=== PATIENT | female | born 1990 | race Caucasian/White ===

== ENCOUNTER 2022-02-05 19:47 | Emergency (ER) | payer SELFPAY ==
--- NOTE | 2022-02-05 19:50 | ED.BACK ---
HPI - Back Pain/Injury General Chief Complaint: Back Pain/Injury Stated Complaint: Back Pain Time Seen by Provider: 02/05/22 19:49 Source: patient Mode of arrival: ambulatory Limitations: no limitations History of Present Illness HPI Narrative: Ms. Swan is a 32-year-old female patient presenting to the clinic today with complaints of back pain. She reports she has had mid back pain x3 days. Reports that there is no injury she just woke up with this pain. Reports that the pain is so bad that is at times it makes her short of breath due to the pain. Reports the pain just at her bra line and just above the lumbar spine. Feels as though it is a deep ache pain. She denies any shortness of breath or chest pain. She denies any coughing. She denies any fever or chills. Denies any saddle anesthesia, urinary incontinence or bowel incontinence, or paresthesia Related Data Allergies Allergy/AdvReac Type Severity Reaction Status Date / Time No Known Allergies Allergy Verified 02/05/22 19:59 Review of Systems Review of Systems: Pertinent positives per HPI. Patient denies any fever, chills, rash, headache, visual changes, dizziness, cough, runny nose, sore throat, shortness of breath, chest pain, palpitations, nausea, vomiting, diarrhea, constipation, abdominal pain, or any urinary issues. PMFSH Comments At the time of my signature, I reviewed and agree with the nursing past medical, surgical, social, and family history. There is no relevant family history pertinent to the patient complaint. Exam Narrative: General: Well-developed, well nourished, in no apparent distress Head: Normocephalic, atraumatic. Cardio: Regular rate and rhythm, s1 and s2 normal, no murmur appreciated. Resp: Clear to auscultation bilaterally, no rhonchi, rales, wheezing or rubs. Musculoskeletal: No deformity, mild tenderness to palpation over the thoracic spine and paraspinous musculature, grossly normal range of motion, muscle strength strong and equal, peripheral pulse strong, no edema, no cyanosis, normal gait and station Course Course Emergency Course: Portions of this record may have been created with voice recognition software. Level of Care: Express Care Visit Vital Signs Vital signs: Vital signs reviewed MDM - Back Pain/Injury MDM Narrative Medical decision making narrative: At the time of visit patient is resting comfortably on the exam table. I suspect the patient has thoracic back pain/paraspinous muscle strain. Supportive measures were discussed with the patient she voiced understanding of discharge instructions and agrees to treatment plan. Differential Diagnosis Differential diagnosis: Likely thoracic back pain, discitis and other (muscle strain) Discharge Plan Discharge Clinical Impression: Acute midline thoracic back pain Patient Disposition: Home, Self-Care Condition: Stable Instructions: Antibiotic Form, Back Pain (ED) Additional Instructions: Take Flexeril as prescribed. Sedation precautions reviewed with the patient Take naproxen as prescribed Follow-up with your PCP in 3 to 5 days if symptoms persist or sooner if they worsen Prescriptions: New cyclobenzaprine 10 mg tablet 10 mg PO Q8H PRN (Reason: muscle spasm) 7 Days Qty: 21 0RF Follow-up/Referrals: UNKNOWN,DOCTOR [Non-Staff] - Time of Disposition: 20:13 Quality NIHSS Nursing Documentation ED NIHSS nursing documentation: reviewed/agree
[2022-02-05 19:52] VITALS: BP 113/68; PULSE 93; RESP 16; TEMP 37.2; O2SAT 97
== END 2022-02-05 19:57 | disposition home or self-care (01) ==
PROVIDERS: Emergency Provider Nurse Practitioner Family
DX: M54.6 Pain in thoracic spine (principal)
CPT/HCPCS: 99213; G0463

== ENCOUNTER 2022-04-24 09:41 | Emergency (ER) | payer SELFPAY ==
--- NOTE | 2022-04-24 10:01 | ED.URI ---
HPI - URI/Sore Throat General Chief Complaint: Upper Respiratory Infection Stated Complaint: sore throat Time Seen by Provider: 04/24/22 10:01 Source: patient and RN notes reviewed History of Present Illness HPI Narrative: patient is a 32-year-old female who presents to the Urgent Care with complaints of sore throat bilateral ear pain for 5 days. Patient has not taken anything [id number] for her symptoms. Denies any fever, nausea, vomiting. Denies any ill exposures. No other acute complaints. No acute distress noted. Patient aware of the plan of care. Some parts of this dictation were generated by voice recognition software and may contain typographical and/or grammatical inaccuracies. Related Data Home Medications Medication Instructions Recorded Confirmed levonorgestrel 20 mcg/24 hours (8 1 device intrauterine ONCE 04/24/22 04/24/22 yrs) 52 mg intrauterine device (Mirena) Allergies Allergy/AdvReac Type Severity Reaction Status Date / Time No Known Allergies Allergy Verified 04/24/22 10:13 Review of Systems Review of Systems: CONSTITUTIONAL: Denies fever, chills, or sweats. EYES: Denies visual changes, redness, or discharge. ENT: Denies rhinorrhea, congestion. reports of sore throat and bilateral ear pain CARDIOVASCULAR: Denies chest pain, palpitations, or edema. RESPIRATORY: Denies cough or dyspnea. GASTROINTESTINAL: Denies abdominal pain, nausea, vomiting, or diarrhea. GENITOURINARY: Denies dysuria or hematuria. SKIN: Denies rash or itching. MUSCULOSKELETAL: Denies back pain, joint pain, or myalgia. NEUROLOGIC: Denies headache, numbness, or weakness. All other systems reviewed are negative, except as documented in HPI. PMFSH Comments At the time of my signature, I reviewed and agree with the nursing past medical, surgical, social, and family history. There is no relevant family history pertinent to the patient complaint. Exam Narrative: GENERAL: This is a well-nourished, well-developed patient, in no apparent distress. HEAD: normocephalic, atraumatic. EYES: PERRL. Sclera clear/white. Vision is grossly intact. EARS: External ears normal, auditory canals clear and without drainage, TMs normal without perforation. Hearing grossly intact. NOSE: External nose normal with no obvious nasal discharge, nares without redness, no rhinorrhea. THROAT: Mucous membranes moist, moderate erythema of the posterior oropharynx with vesicular lesions to the posterior tongue and moderate postnasal drainage. NECK: Neck supple, non-tender mild bilateral submandibular lymphadenopathy CARDIOVASCULAR: Regular rate and rhythm without murmurs, gallops, or rubs. RESPIRATORY: Clear to auscultation. Breath sounds equal bilaterally. No wheezes, rales, or rhonchi. SKIN: warm, intact with no suspicious lesions or rash, good texture and turgor. NEURO: awake, alert, and oriented to person, place and time. There were no obvious focal neurologic abnormalities. EXTREMITIES: No clubbing, cyanosis, or edema. Course Course Level of Care: Express Care Visit Vital Signs Vital signs: Vital Signs Temperature 98.1 F 04/24/22 10:05 Pulse Rate 88 04/24/22 10:05 Respiratory Rate 20 04/24/22 10:05 Blood Pressure 96/69 L 04/24/22 10:05 Pulse Oximetry 99 04/24/22 10:05 Oxygen Delivery Room Air 04/24/22 10:05 Temperature 98.1 F 04/24/22 10:05 Pulse Rate 88 04/24/22 10:05 Respiratory Rate 20 04/24/22 10:05 Blood Pressure 96/69 L 04/24/22 10:05 Pulse Oximetry 99 04/24/22 10:05 Oxygen Delivery Room Air 04/24/22 10:05 Reviewed MDM - URI/Sore Throat MDM Narrative Medical decision making narrative: reviewed lab results with the patient. She is aware that strep swab was negative. Educated patient on culture and we will call within 72 hours if culture is positive antibiotics are necessary. Advised the patient to complete the steroid regimen as prescribed. Be sure to eat and drink with
[2022-04-24 10:05] VITALS: BP 96/69; PULSE 88; RESP 20; TEMP 36.7; O2SAT 99
== END 2022-04-24 10:35 | disposition home or self-care (01) ==
PROVIDERS: Emergency Provider Nurse Practitioner Family
DX: J02.9 Acute pharyngitis, unspecified (principal)
CPT/HCPCS: 87081; 87880; 99213; G0463

== ENCOUNTER 2023-01-09 10:14 | Emergency (ER) | payer SELFPAY ==
--- NOTE | 2023-01-09 10:18 | ED.URI ---
HPI - URI/Sore Throat General Chief Complaint: Upper Respiratory Infection Stated Complaint: Flu Symptoms Time Seen by Provider: 01/09/23 10:27 Source: patient, RN notes reviewed and old records reviewed Mode of arrival: ambulatory Limitations: no limitations History of Present Illness HPI Narrative: 32-year-old female presents to the [facility] with complaints of feeling very weak and shaky and a runny nose for 6 days. Has not taken anything for symptoms. States that she is eating and drinking without issue. Unsure if she has had a fever. Requesting a COVID test states that her taste buds are strange. Denies a sore throat but states that it she has had strep in the past without a sore throat Related Data Home Medications Medication Instructions Recorded Confirmed levonorgestrel 21 mcg/24 hours (8 1 device intrauterine ONCE 04/24/22 04/24/22 yrs) 52 mg intrauterine device (Mirena) Allergies Allergy/AdvReac Type Severity Reaction Status Date / Time No Known Allergies Allergy Verified 04/24/22 10:13 Review of Systems Review of Systems: All systems reviewed & are unremarkable except as noted in HPI and below Constitutional: Constitutional: Reports as per HPI Eyes: Eyes: Reports no additional eye complaints ENT: Reports system reviewed and no additional complaints, except as documented Cardiovascular: Cardiovascular: Reports no additional cardiovascular complaints, Denies chest pain and Denies dyspnea Respiratory: Respiratory: Reports no additional respiratory complaints, Denies chest congestion, Denies cough and Denies dyspnea Gastrointestinal: Gastrointestinal: Reports no additional gastrointestinal complaints, Denies abdominal pain, Denies nausea and Denies vomiting Musculoskeletal: Musculoskeletal: Reports no additional musculoskeletal complaints Integumentary/Breasts: Skin/Breast: Reports system reviewed and no additional complaints, except as docu Neurologic: Reports system reviewed and no additional complaints, except as documented Psychiatric: Psychiatric: Reports no additional psychiatric complaints Allergic/Immunologic: Allergic/Immunologic: Reports no additional allergic/immunologic complaints PMFSH Comments At the time of my signature, I reviewed and agree with the nursing past medical, surgical, social, and family history. There is no relevant family history pertinent to the patient complaint. Exam Const: General: cooperative, healthy appearing, comfortable, no acute distress, well developed, alert and well nourished Nutritional Appearance: well nourished Orientation/consciousness: patient oriented x3 Limitations: no limitations HENMT: Head: normal to inspection Ears: hearing grossly normal bilaterally, external ears normal, TM's normal bilaterally and EAC's normal Face/Nose/Sinus: Normal external nose present, Normal nares present, Normal nasal mucous membranes and turbinates present and normal facial exam Face and sinus: normal facial exam Mouth: Yes Normal oral and palatal mucosa present, Yes lip normal and Yes moist mucous membranes Throat: posterior oropharynx normal, uvula midline and postnasal drainage Eyes: General: appearance normal, both eyes and all related structures Alignment and Position: alignment normal Periorbital: periorbital findings normal Pupils: Equal, round and reactive pupils present EOM: EOMs intact bilaterally Neck: Neck: normal visual inspection, full ROM, no lymphadenopathy and no meningeal signs Chest: Chest palpation & inspection: normal inspection of the chest Resp: Effort & Inspection: normal respiratory effort and able to speak in complete sentences Auscultation: clear to auscultation bilaterally, no crackles, no rales, no rhonchi and no wheezes Cardio: Rate: regular rate Rhythm: regular rhythm Back/Spine/Pelvis: Cervical Spine: cervical ROM normal Thoracic/Lumbar Spine: No thoracic spinal tenderness Skin: General skin exam: normal color an
[2023-01-09 10:26] VITALS: BP 116/70; PULSE 113; RESP 16; TEMP 37.2; O2SAT 99
[2023-01-09 10:29] VITALS: BP 116/70; PULSE 113; RESP 16; TEMP 37.2; O2SAT 99
== END 2023-01-09 11:22 | disposition home or self-care (01) ==
PROVIDERS: Emergency Provider Nurse Practitioner
DX: B34.9 Viral infection, unspecified (principal); Z20.822 Contact with and (suspected) exposure to COVID-19
CPT/HCPCS: 87081; 87426; 87804; 87880; 99213; C9803; G0463

== ENCOUNTER 2024-05-31 12:20 | Emergency (ER) | payer OTHER, SELFPAY ==
[2024-05-31 12:44] VITALS: BP 120/83; PULSE 96; RESP 20; TEMP 36.7; O2SAT 100
--- NOTE | 2024-05-31 13:43 | ED_ITS ---
HPI - Female Genitourinary General Chief complaint: Urogenital-Female Stated complaint: UTI Time Seen by Provider: 05/31/24 13:34 History of Present Illness HPI Narrative: Pt presents with dysuria and frequency. Pt has new partner and thinks she may have some tears from sex as she has pain in vagina. Pt denies discharge or any lesions. Pt does not want to have a pelvic exam or any feale exam at this time but is fine with ua and gc/chlamydia on urine. has uti, gc/chlamydia neg. home on antibiotics and pyridium. Related Data Home Medications ?Medication ?Instructions ?Recorded ?Confirmed ?Last Taken ?Type levonorgestrel 21 mcg/24 hr (up to 1 device intrauterine ONCE 04/24/22 04/24/22 Unknown History 8 years) 52 mg intrauterine device (Mirena) Allergies Allergy/AdvReac Type Severity Reaction Status Date / Time No Known Allergies Allergy Verified 05/31/24 12:20 Review of Systems Review of Systems: All systems reviewed & are unremarkable except as noted in HPI and below Exam Const: General: healthy appearing and no acute distress Nutritional Appearance: well nourished Orientation/consciousness: patient oriented x3 Limitations: no limitations HENMT: Head: normal to inspection Resp: Effort & Inspection: normal respiratory effort Auscultation: clear to auscultation bilaterally Cardio: Rate: regular rate Rhythm: regular rhythm GI: GI Palp: Yes Soft to palpation and No Tenderness to palpation present (GI) Auscultation: normal bowel sounds Skin: General skin exam: normal color Wounds: no wounds Neuro: General: patient oriented x3, moves all extremities and no focal motor deficits Speech: normal speech Extrem: General: normal to inspection and no clubbing, cyanosis or edema Psych: Appearance: grossly normal and well kempt Mental Status: mental status grossly normal Affect: normal affect Attitude: cooperative Course Vital Signs Vital signs: Vital Signs Temperature 98.0 F 05/31/24 12:44 Pulse Rate 96 05/31/24 12:44 Respiratory Rate 20 05/31/24 12:44 Blood Pressure 120/83 05/31/24 12:44 Pulse Oximetry 100 05/31/24 12:44 Oxygen Delivery Room Air 05/31/24 12:44 Temperature 98.0 F 05/31/24 12:44 Pulse Rate 96 05/31/24 12:44 Respiratory Rate 20 05/31/24 12:44 Blood Pressure 120/83 05/31/24 12:44 Pulse Oximetry 100 05/31/24 12:44 Oxygen Delivery Room Air 05/31/24 12:44 MDM - Female Genitourinary MDM Narrative Medical decision making narrative: Pt has uti symptoms and has vaginal pain she thinks is traumatic do to new partner's size. Pt does not want pelvic or any vaginal exam at this time. Will check UA and GC/Chlamydia on UA. GC chlamydia neg. UTI noted, home on pyridium and ceftin. Lab Data Labs: Lab Results 05/31/24 05/31/24 Range/Units 13:37 13:45 Urine Color Yellow (Yellow) Urine Appearance Cloudy H (Clear) Urine pH 7.0 (5.0-9.0) Ur Specific [place] 1.017 (1.001-1.035) Urine Protein Negative (Negative) mg/dL Urine Glucose (UA) Negative (Negative) mg/dL Urine Ketones Negative (Negative) mg/dL Ur Blood (Man) Non-hemolyzed trace H (Negative) Urine Nitrate Positive H (Negative) Urine Bilirubin Negative (Negative) Urine Urobilinogen 0.2 (<2.0) mg/dL Leukocyte Esterase Rfl 3+ H (Negative) GWENDOLYN/UL Urine RBC 11-20 H (0-2) /hpf Urine WBC >100 H (0-3) /hpf Ur Squamous Epith Cells None seen (Few) /hpf Urine Bacteria 4+ H /hpf Urine Casts 0-2 POC Urine HCG, Qual Negative (Negative) C. trachomatis (PCR) Not detected (NOT DETECTE) N. gonorrhoeae (PCR) Not detected (NOT DETECTE) Discharge Plan Discharge Clinical Impression: Urinary tract infection Patient Disposition: Home, Self-Care Condition: Stable Instructions: Antibiotic Form, Urinary Tract Infection in Women (ED) Patient Language: Paraguayan Prescriptions: New cefdinir 300 mg capsule 300 mg PO Q12H Qty: 10 0RF phenazopyridine [Pyridium] 100 mg tablet 100 mg PO TID Qty: 6 0RF No Action Mirena 20 mcg/24 hours (8 yrs) 52 mg Intrauterine Device 1 device INTRAUTERINE ONCE Rx Instructions: as a single dose Follow-up/Referrals: PHYSICIAN,PROFESSOR OF PHYSICAL EDUCATION [Non-Staff] -
[2024-05-31 13:47] LABS: BEDSIDEPREGUCG Negative (Negative)
[2024-05-31 14:07] LABS: Add Urine Microscopic? YES; Appearance Urine Cloudy (Clear); Bacteria Urine 4+ /hpf; Bilirubin Urine Negative (Negative); Blood Urine Non-Hemolyzed Trace (Negative); Color Urine Yellow (Yellow); Glucose Urine UA Negative (Negative); Ketones Urine Negative (Negative); Leukocyte Esterase Ur 3+ LEU/UL (Negative); Nitrate Urine Positive (Negative); Non Pathogenic Casts 0-2; Protein Urine Negative (Negative); Specific Grav Ur 1.017 (1.001-1.035); Squamous Epithelial Cell Urine None Seen /hpf (Few); Urobilinogen Urine 0.2 mg/dL (<2.0); WBC Urine >100 /hpf (0-3)
[2024-05-31 15:28] LABS: Chlamydia trachomatis NOT DETECTED (NOT DETECTE); Neisseria gonorrhoeae PCR NOT DETECTED (NOT DETECTE)
== END 2024-05-31 15:49 | disposition home or self-care (01) ==
PROVIDERS: Emergency Provider Emergency Medicine
DX: N39.0 Urinary tract infection, site not specified (principal)
CPT/HCPCS: 81001; 81025; 87086; 87186; 87491; 87591; 99283

== ENCOUNTER 2024-11-17 18:24 | Emergency (ER) | payer OTHER, SELFPAY ==
--- OUTSIDE RECORDS SUMMARY | 2024-11-17 18:33 | XMS_ITS | Clinical Summary ---
Author Organization [facility] Address [address] [place] [address] Phone Care Team Providers Care Secondary History Teacher Name Role Phone Unavailable Primary Care Provider Unavailabl e Allergies No known active allergies Medications naproxen (NAPROSYN) 500 MG Tablet Take 1 Tablet by mouth 2 times daily as needed for Mild or more severe pain. 20 Tablet 12/02/2023 Active Social History Tobacco Use Types Packs/Day Years Used Date Smoking Tobacco: Every Day Cigarettes Smokeless Tobacco: Never Tobacco Cessation:Ready to Q uit: Not Asked; Counseling Given: Not Answered Alcohol Use Standard Drinks/Week Comments Not Asked 0 (1 standard drink = 0.6 oz pur e alcohol) socially Comments No Sex and Gender Information Value Date Recorded Sex Assigned at Female 12/02/2023 11:52 AM CDT Legal Sex Female 9:32 PM CDT Gender Identity Female 12/02/2023 11:52 AM CDT Sexual Orientation Not on file Last Filed Vital Signs Vital Sign Reading Time Taken Comments Blood Pressure 118/72 12/02/2023 11:36 AM CDT Pulse 90 12/02/2023 11:36 AM CDT Temperature 36.4 C (97.6 F) 12/02/2023 11:36 AM CDT Respiratory Rate 16 12/02/2023 11:36 AM CDT Oxygen Saturation 100% 12/02/2023 11:36 AM CDT Inhaled Oxygen Concentration - - Weight 52.2 kg (115 lb) 12/02/2023 11:36 AM CDT Height 160 cm (5' 3) 12/02/2023 11:36 AM CDT Body Mass Index 20.37 12/02/2023 11:36 AM CDT Plan of Treatment Health Maintenance Due Date Last Done Comments Hepatitis C Virus (HCV) Screening 1991 TdaP Immunization 1991 Hepatitis B Immunization (1 of 3 - 19+ 3-dose series) 2010 Pneumococcal Immunization Co mbined (1 of 2 - PCV) 2010 Pap Smear 01/12/2012 Cervical Cancer Screening (CCS) 2021 HPV/Cotest 2021 SARS-COV-2 Immunization (1 - 2023- season) 2024 Influenza Immunization (Seas on Ended) 2025 03/19/2013 Respiratory Syncytial Virus (RSV) Immunization (Adult) (1 - 1-dose 75+ series) 2066 Human Papillomavirus (HPV) Immunization Aged Out No longer eligible b ased on patient's age to complete this topic Meningococcal Immunization (ACWY) Aged Out No longer eligible based on patient's age to complete this topic Rotavirus Immunization Aged Out No lo nger eligible based on patient's age to complete this topic Insurance MEDICAID [employer] [facility]
--- OUTSIDE RECORDS SUMMARY | 2024-11-17 18:33 | XMS_ITS | Referral Summary ---
Author Organization [facility] Address [address] [place] [address] Care Team Providers Care Meat Passer Name Role Phone No, Physician Primary Care Provider [phone] Encounters Date Type Department Care Team Description 10/12/2024 Telephone [facility] [address] [place] [address] dOilia Pereyra, from Last 3 Months Allergies No known active allergies Medications ketorolac (TORADOL) 10 mg tablet Take 1 tablet (10 mg total) by mouth 4 (four) times a day as needed for pain Take with food. 20 tablet 2 Active ondansetron ODT (ZOFRAN-ODT) 4 mg disintegrating tablet Dissolve 1 tablet oral every 4 hours as needed for nausea or vomiting. 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 Gender Identity Not on file Sexual Orientation Not on file Last Filed Vital Signs Vital Sign Reading Time Taken Comments Blood Pressure 124/66 07/25/2022 6:30 PM SPORTS COMMENTATOR Pulse 84 07/25/2022 6:30 PM SPORTS COMMENTATOR Temperature 36.4 C (97.5 F) 07/25/2022 6:30 PM SPORTS COMMENTATOR Respiratory Rate 16 07/25/2022 6:30 PM SPORTS COMMENTATOR Oxygen Saturation 98% 07/25/2022 6:30 PM SPORTS COMMENTATOR Inhaled Oxygen Concentration - - Weight 52.2 kg (115 lb) 07/25/2022 4:40 PM SPORTS COMMENTATOR Height 160 cm (5' 3) 07/25/2022 4:40 PM SPORTS COMMENTATOR Body Mass Index 20.37 07/25/2022 4:40 PM SPORTS COMMENTATOR Plan of Treatment Not on file Care Teams Meat Passer Relationship Specialty Start Date End Date No, Physician PCP - General 04/14/22
--- OUTSIDE RECORDS SUMMARY | 2024-11-17 18:33 | XMS_ITS | Clinical Summary ---
Author Organization [facility] Address [address] [place] [address] Care Team Providers Care Dye Lab Technician Name Role Phone No, Physician Primary Care Provider [phone] Allergies No known active allergies Medications ketorolac [...] Encounter for assessment of STD exposure 023 Encounters Date Type Department Care Team Description 10/12/2024 Telephone [facility] [address] [facility] [address] [place] [address] Odilia Pereyra DO from Last 3 Months Surgical History Surgery Date Site/Laterality Comments SECTION x 2 Social History Tobacco Use Types Packs/Day Years Used Date Smoking Tobacco: Every Day Cigarettes Tobacco Cessation:Ready to Q uit: Not Asked; Counseling Given: Not Answered Comments No Sex and Gender Information Value Date Recorded Sex Assigned at Not on file Legal Sex Female 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 Gender Identity Not on file Sexual Orientation Not on file Obstetrics History Last Filed Vital Signs Vital Sign Reading Time Taken Comments Blood Pressure 124/66 07/25/2022 6:30 PM GRAB JACK WORKER Pulse 84 07/25/2022 6:30 PM GRAB JACK WORKER Temperature 36.4 C (97.5 F) 07/25/2022 6:30 PM GRAB JACK WORKER Respiratory Rate 16 07/25/2022 6:30 PM GRAB JACK WORKER Oxygen Saturation 98% 07/25/2022 6:30 PM GRAB JACK WORKER Inhaled Oxygen Concentration - - Weight 52.2 kg (115 lb) 07/25/2022 4:40 PM GRAB JACK WORKER Height 160 cm (5' 3) 07/25/2022 4:40 PM GRAB JACK WORKER Body Mass Index 20.37 07/25/2022 4:40 PM GRAB JACK WORKER Plan of Treatment Health Maintenance Due Date Last Done Comments Depression Screening 1991 Hepatitis C Screening 1991 DTaP/Tdap/Td Vaccine (1 - Tdap) 2002 Varicella Vaccines (1 of 2 - 13+ 2-dose series) 01/12/2004 Hepatitis B Screening 2009 Regular Well Visit/Exam 18-64 2009 Pneumococcal vaccine <65 (1 of 2 - PCV) 2010 Cervical Cancer Screening 10/06/2013 10/06/2012 Influenza Vaccine (Season Ended) 2025 03/19/20 13 HPV Vaccines Aged Out No longer eligi ble based on patient's age to complete this topic Care Teams Dye Lab Technician Relationship Specialty Start Date End Date No, Physician PCP - General 04/14/22
[2024-11-17 18:34] VITALS: BP 123/79; PULSE 116; RESP 16; TEMP 36.6; O2SAT 99
--- NOTE | 2024-11-17 18:48 | ED.DIZZY ---
HPI - Dizziness General Chief Complaint: Urogenital-Female Stated Complaint: fatigue, dizziness Source: patient Mode of arrival: ambulatory Limitations: no limitations History of Present Illness HPI Narrative: Patient is a 34 year old female who presents to the clinic for complaints of dizziness and hot flashes that started 5 days ago. She states that she took three tests. Two were negative and one was questionable. She also states that she is having urgency with urination. Denies any shortness of breath, difficulty swallowing, fevers, body aches, vomiting, or diarrhea. Related Data Home Medications ?Medication ?Instructions ?Recorded ?Confirmed ?Last Taken ?Type levonorgestrel (Mirena) 1 device intrauterine ONCE 04/24/22 04/24/22 Unknown History Allergies Allergy/AdvReac Type Severity Reaction Status Date / Time No Known Allergies Allergy Verified 11/17/24 18:41 Review of Systems Review of Systems: CONSTITUTIONAL: Denies body aches, fever, chills, or sweats. EYES: Denies visual changes, redness, or discharge. ENT: Denies rhinorrhea, congestion, sore throat, or otalgia. CARDIOVASCULAR: Denies chest pain, palpitations, or edema. RESPIRATORY: Denies cough or dyspnea. GASTROINTESTINAL: Denies abdominal pain, nausea, vomiting, or diarrhea. GENITOURINARY: Denies dysuria or hematuria. Reports urgency. SKIN: Denies rash, itching, or wounds. MUSCULOSKELETAL: Denies back pain, joint pain, or myalgia. NEUROLOGIC: Denies numbness, tingling, or weakness. Reports dizziness. PSYCH: ?Denies depression or anxiety. All systems reviewed & are unremarkable except as noted in HPI and below PMFSH Comments At time of signature, I have reviewed and agree with nursing past medical, surgical, social and family history unless otherwise noted. Please see nursing chart for further information. There is no relevant family history pertinent to the presenting complaint. Exam Narrative: GENERAL: Well-appearing, well-nourished HEAD: Normocephalic, atraumatic. EYES: PERRLA, EOMI. ? ENT: Mucous membranes pink and moist. ?No rhinorrhea. ?TMs normal bilaterally. ? NECK: Normal AROM. ?Supple. ?No lymphadenopathy. CHEST: ?No respiratory distress. Clear to auscultation. HEART: Regular rate and rhythm. No murmur appreciated. Normal peripheral pulses. ABDOMEN: Soft, nontender, nondistended, normal active bowel sounds. MUSCULOSKELETAL: ?No bony tenderness. EXTREMITIES: Normal range of motion. No edema. SKIN: Warm, dry, no rash. Capillary refill normal. ?Normal skin turgor. : Patient deferred exam. NEURO: No focal deficits. Alert and oriented x3. ?Finger to nose intact bilaterally. EOM's intact without nystagmus. No facial droop/asymmetry noted bilaterally. Grimace intact. Intact sensation in face. Hearing intact bilaterally. Shoulder shrug intact. Strength 5/5 bilateral upper extremities. Strength 5/5 bilateral lower extremities. Ambulatory exam with a normal based, steady gait. PSYCH: ?Normal affect. ?No signs of depression or anxiety. Course Course Level of Care: Express Care Visit Vital Signs Vital signs: Vital Signs Temperature 98 F 11/17/24 18:34 Pulse Rate 116 H 11/17/24 18:34 Respiratory Rate 16 11/17/24 18:34 Blood Pressure 123/79 11/17/24 18:34 Pulse Oximetry 99 11/17/24 18:34 Oxygen Delivery Room Air 11/17/24 18:34 Temperature 98 F 11/17/24 18:34 Pulse Rate 116 H 11/17/24 18:34 Respiratory Rate 16 11/17/24 18:34 Blood Pressure 123/79 11/17/24 18:34 Pulse Oximetry 99 11/17/24 18:34 Oxygen Delivery Room Air 11/17/24 18:34 Reviewed. MDM - Dizziness MDM Narrative Medical decision making narrative: Discussed physical exam findings. Urine negative. UA negative. UA Culture sent. Discussed in great length with patient that for persistent symptoms ER evaluation is needed. Patient not agreeable to ER at this time. Advised meclizine over the counter to try for dizziness. Pt is appropriate for outpatient treatment and follow up. Differential Diagnosis Differential diagnosis: Likely orthostatic hypotension and other (, UTI ) Critical Care Time Critical Care Time Critical Care Time: No Discharge Plan Discharge Clinical Impression: Dizziness Patient Disposition: Home Condition: Stable Instructions: Dizziness (ED) Additional Instructions: Take meclizine over the counter for dizziness. Certain movements done in a specific way can help vertigo. You can try one or both of the following maneuvers: Kian Maneuver: 1) Sit with a pillow behind your head. Turn head to the affected side, lie down quickly keeping your head turned. 2) Remain in this position until dizziness stops + 30 seconds 3) Slowly turn your head in the opposite direction. Remain in that position until you are not dizzy + 30 seconds 4) Staying on that side, raise onto your shoulder/side keeping your head turned and your face pointed to the floor. Stay in this position until you are not dizzy + 30 seconds 5) Slowly return to sitting 6) Repeat every hour until vertigo is resolved. Vertigo Maneuver: 1) Kneel on the floor, look up to the ceiling. Turn the head upside down so the top of your head touches the floor 2) Turn your head quickly to the affected side. Wait 30 seconds 3) Quickly raise your head to be level with your back (back is flat/horizontal). Stay in this position for 30 seconds 4) Raise up to your knees keeping your head turned 5) Repeat every hour until vertigo resolves If you experience dizziness that persists, severe headache, weakness in any extremity, difficulty speaking or swallowing, you pass out, or for any other urgent concerns you should go to the ER. Make a follow-up appointment with your PCP for further evaluation of your vertigo. Patient Language: Maltese Prescriptions: No Action Mirena 20 mcg/24 hours (8 yrs) 52 mg Intrauterine Device 1 device INTRAUTERINE ONCE Rx Instructions: as a single dose Follow-up/Referrals: PHYSICIAN,[employer] [Primary Care Provider] - Time of Disposition: 19:16
[2024-11-17 19:07] LABS: BEDSIDEPREGUCG Negative (Negative); EDUAAPPEAR Clear; EDUABILI Negative (Negative); EDUABLOOD Negative (Negative); EDUACOLOR1 Yellow; EDUAGLUCOSE Negative (Negative); EDUAKETONE Negative (Negative); EDUALEUKO Negative (Negative); EDUANITRATE Negative (Negative); EDUAPROTEIN Negative (Negative); EDUAUROBILI 0.2
== END 2024-11-17 19:22 | disposition home or self-care (01) ==
DX: R42 Dizziness and giddiness (principal)
CPT/HCPCS: 81003; 81025; 87086; 99213; G0463